=== PATIENT | male | born 1955 | race Caucasian/White ===

== ENCOUNTER 2018-01-23 21:07 | Inpatient (IN) | payer OTHER ==
[~2018-01-23] VITALS: Ht 182.9 cm; Wt 108.9 kg
[2018-01-23 21:11] VITALS: BP 131/77
[2018-01-23] MEDS ORDERED: AMITRIPTYLINE H75 M1 PO (21:18)
[2018-01-23] MEDS ORDERED: ADULT ASPIRIN81 MG PO (21:20)
[2018-01-23] MEDS ORDERED: NEURONTIN 300300 M1 PO (21:20)
[2018-01-23] MEDS ORDERED: PREDNISOLONE 5 M5 MG PO (21:20)
[2018-01-23 21:35] LABS: ABSOLUTE BASOPHILS 0.1 thou/uL (0.0-0.2); ABSOLUTE EOSINOPHILS 0.3 thou/uL (0.0-0.7); ABSOLUTE LYMPHOCYTES 1.7 thou/uL (0.8-5.3); ABSOLUTE MONOCYTES 0.8 thou/uL (0.0-1.2); ABSOLUTE NEUTROPHILS 5.5 thou/uL (1.6-8.1); EOSINOPHILS 3.1 %; HEMOGLOBIN 12.5 gm/dL (14.0-18.0); LYMPHOCYTES 20.5 %; MCH 32.2 pg (26.0-34.0); MCHC 33.7 g/dL (28.0-37.0); MCV 95.4 fL (80.0-100.0); MONOCYTES 9.1 %; MPV 7.7 fl. (7.2-11.1); NUCLEATED RBCS 0 /100WBC; PLATELET COUNT* 244 thou/uL (150-400); POLYS 66.3 %; RBC 3.88 mil/uL (4.50-6.00); RDW-CV 14.1 % (10.5-14.5); WBC 8.3 thou/uL (4.0-11.0)
[2018-01-23 21:40] LABS: ANION GAP 2 mmol/L (7-16); BUN 15 mg/dL (7-18); CALCIUM 8.8 mg/dL (8.5-10.1); CHLORIDE 97 mmol/L (98-107); CO2 39 mmol/L (21-32); CREATININE 1.1 mg/dL (0.6-1.3); GLUCOSE 105 mg/dL (70-99); POTASSIUM 3.6 mmol/L (3.5-5.1); SODIUM 138 mmol/L (136-145)
[2018-01-23 21:51] LABS: ALBUMIN 3.5 g/dL (3.4-5.0); ALKALINE PHOSPHATASE 140 U/L (46-116); NT-PRO BRAIN NAT PEPTIDE 33 pg/mL (<300); SGOT 22 U/L (15-37); SGPT 27 U/L (30-65); TOTAL BILIRUBIN 0.3 mg/dL (<0.1-1.0); TOTAL PROTEIN 7.1 g/dL (6.4-8.2); TROPONIN-I LEVEL <0.06 ng/mL (<0.06)
[2018-01-23 21:59] LABS: PROTIME 10.2 Seconds (9.20-11.50)
[2018-01-24] VITALS (8 sets, daily range): BP systolic 118–166; BP diastolic 65–80
[2018-01-24 05:04] LABS: URINE BILIRUBIN NEGATIVE (Negative); URINE BLOOD NEGATIVE (Negative); URINE CLARITY CLEAR; URINE COLOR YELLOW; URINE GLUCOSE-RANDOM NEGATIVE (Negative); URINE KETONES NEGATIVE (Negative); URINE LEUKOCYTES-REFLEX NEGATIVE (Negative); URINE NITRITE-REFLEX NEGATIVE (Negative); URINE PROTEIN NEGATIVE (Negative); URINE SPECIFIC GRAVITY <= 1.005 (1.005-1.030); URINE UROBILINOGEN 0.2 E.U./dl (0.2-1.0)
[2018-01-24 05:32] LABS: HEMATOCRIT 36.4 % (42.0-52.0); MCH 31.7 pg (26.0-34.0); MCHC 32.9 g/dL (28.0-37.0); MCV 96.4 fL (80.0-100.0); MPV 7.9 fl. (7.2-11.1); RBC 3.77 mil/uL (4.50-6.00); RDW-CV 14.6 % (10.5-14.5)
[2018-01-24 06:06] LABS: ALBUMIN 3.4 g/dL (3.4-5.0); CALCIUM 8.6 mg/dL (8.5-10.1); CREATININE 1.1 mg/dL (0.6-1.3); POTASSIUM 4.1 mmol/L (3.5-5.1); TOTAL BILIRUBIN 0.2 mg/dL (<0.1-1.0); TOTAL PROTEIN 6.4 g/dL (6.4-8.2)
--- NOTE | 2018-01-24 11:56 | EKG ---
[place] [address] ELECTROCARDIOGRAM REPORT Name: JAMARSTAR Room: [address] ADM IN M.R.#: [id number] Admission: 01/23/18 Attend Phys: Jonathan Costello MD Discharge: Date of : 53 Report #: [id number] THIS REPORT FOR: //name// 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
--- NOTE | 2018-01-24 11:56 | EKG ---
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
[2018-01-24] MEDS ORDERED: FLOMAX0.4 MG PO (12:54)
[2018-01-24] MEDS ORDERED: BACTRIM DS TAB1 EACH PO (12:55)
[2018-01-24] MEDS ORDERED: HYDROCHLOROTHIA25 M2 PO (12:56)
[2018-01-24] MEDS ORDERED: SYMBICORT160 MCG/4. INH (13:00)
[2018-01-24 15:32] LABS: ANION GAP < 0 mmol/L (7-16); BUN 18 mg/dL (7-18); CALCIUM 8.9 mg/dL (8.5-10.1); CHLORIDE 98 mmol/L (98-107); CHOLESTEROL 202 mg/dL (<200); CO2 39 mmol/L (21-32); CREATININE 1.1 mg/dL (0.6-1.3); GLUCOSE 121 mg/dL (70-99); HDL CHOLESTEROL 51 mg/dL (>40); LDL CHOLESTEROL 126 mg/dL (<100); POTASSIUM 4.2 mmol/L (3.5-5.1); SODIUM 136 mmol/L (136-145); TRIGLYCERIDE 127 mg/dL (<150); VLDL 25 mg/dL (<40)
[2018-01-24 15:33] LABS: SERUM ASSESSMENT Clear
[2018-01-24] MEDS ORDERED: MOBIC7.5 MG PO (22:18)
[2018-01-24] MEDS ORDERED: CYMBALTA30 MG PO (22:21)
[2018-01-24] MEDS ORDERED: VIAGRA100 MG PO (22:22)
[2018-01-24] MEDS ORDERED: SPIRIVA PO (22:23)
[2018-01-24] MEDS ORDERED: VENTOLIN HFA INH8 GM INH (22:25)
[2018-01-24] MEDS ORDERED: CYCLOBENZAPRINE5 MG PO (22:25)
[2018-01-24] MEDS ORDERED: NORVASC5 M1 PO (22:26)
[2018-01-24] MEDS ORDERED: DALIRESP250 MCG PO (22:26)
[2018-01-24] MEDS ORDERED: ACCUNEB SO1.25 MG/1 INH (22:29)
[2018-01-24] MEDS ORDERED: ZYRTEC10 M5 PO (22:30)
[2018-01-24] MEDS ORDERED: LIDOCAINE-PRILO30 GM TOP (22:30)
[2018-01-24] MEDS ORDERED: NITROGLYCERIN0.4 MG SUBLING (22:31)
[2018-01-24] MEDS ORDERED: IPRAT-ALBUT 0.5-3 ML INH (22:32)
[2018-01-24] MEDS ORDERED: IPRATROPIU0.2 MG/1 M INH (22:54)
[2018-01-25] VITALS: BP 120/60
[2018-01-25 04:00] VITALS: BP 131/69
[2018-01-25 08:45] VITALS: BP 123/63
--- NOTE | 2018-01-25 11:37 | EKG ---
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: : 1955 Requested By: Jonathan Costello Order Number: [id number] Reading MD: Rip Tam Measurements Intervals [place] Rate: 81 P: 69 [place]: 186 QRS: 47 QRSD: 108 T: 68 QT: 475 QTc: 552 Interpretive Statements Sinus rhythm Probable left atrial enlargement Borderline T wave abnormalities Prolonged QT interval Baseline wander in lead(s) III,V2,V3,V4,V5 Compared to ECG 01/24/2018 10:23:41 T-wave abnormality now present Prolonged QT interval now present Electronically Signed On 01-25-2018 11:37:22 CDT by Rip Tam [email or web address] <ELECTRONICALLY SIGNED> By: Rip Tam MD, FACC 01/25/18 1137 1854 1854 Rip Tma MD, FACC /EPI
[2018-01-25 12:00] VITALS: BP 116/62
[2018-01-25 15:52] VITALS: BP 141/64
[2018-01-25 20:00] VITALS: BP 142/67
[2018-01-26] VITALS (12 sets, daily range): BP systolic 119–163; BP diastolic 63–92
[2018-01-26] MEDS ORDERED: DOXYCYCLINE 10100 MG PO (13:12)
[2018-01-26] MEDS ORDERED: PREDNISONE 20 M20 MG PO (13:12)
--- NOTE | 2018-01-26 14:24 | CARD ---
[address] [address] CARDIAC CATH REPORT Name: STAR ROLDAN Room: [address] IN .R.#: [id number] Admission: 01/23/18 Attend Phys: Jonathan Costello MD Discharge: Date of : 53 Report #: [id number] THIS REPORT FOR: //name// APPROVED REPORT Study performed: 01/26/2018 09:23:21 Patient Details Patient Status: In-Patient Room #: 210 The patient is a year-old male Event Personnel Shad Zhuo Fire Claims Adjuster, Adriana Alfonso RN Senior Product Marketing Manager, Nayana Jensen RTR Monitor, Reece Verdin (R) Scrub Procedures Performed Art Access - R radial artery Left Heart Cath w/or w/o Coronaries [facility] Hemostasis with Hemoband Indication Syncope, Chest pain Risk Factors Arterial Hypertension, Chronic Lung Disease Admission/Lab Medications/Medications given during procedure Heparin Unfract. Procedure Narrative The patient was brought electively to the Cardiac Catheterization Laboratory and was prepped and draped in a sterile manner. The right wrist was infiltrated with 2% Lidocaine subcutaneous anesthesia. A Slender Glidesheath sheath was inserted into the right radial artery. Coronary angiography was performed using coronary diagnostic catheters. The right coronary system was accessed and visualized with a Diagnostic 6Fr JR4 catheter. The left coronary system was accessed and visualized with a Diagnostic 6Fr JL4 catheter. The left ventricle was accessed and visualized with a Diagnostic 6Fr Straight pigtail catheter. Left ventricular/Aortic Valve gradient assessed via catheter pullback. Left ventriculogram was performed in SNYDER projection. An aortogram of the SNYDER was performed. Closure device was deployed with a 6 Fr Vasc-Band Lng 27cm. The patient tolerated the procedure well and there were no complications associated with the procedure. [place] [address] CARDIAC CATH REPORT Name: STAR ROLDAN Room: [address] IN [facility]#: [id number] Admission: 01/23/18 Attend Phys: Jonathan Costello MD Discharge: Date of : 53 Report #: [id number] Intraoperative Conscious Sedation Sedation start time: 8:46 Case end Time: 9:30 Versed 2 mg Fluoro Time: 1.9 minutes Dose: DAP 3913.77 cGycm2 217 mGy Contrast Type and Amount: Visipaque 90 ml Coronary Angiography The patient's coronary anatomy is left dominant. Torres Martinez Artery Percent Stenosis Left Main: 0 % Prox LAD: 0 % Mid/Distal LAD: 30 % Circumflex: 30 % RCA: 0 % Ramus: % Left Ventriculography The left ventricle is normal in size with normal contractility. The left ventricular ejection fraction is estimated to be 60-65%. Left ventricular wall motion abnormalities are not present. There is no mitral insufficiency. Hemodynamics The aortic pressure is 90/53 mmHg with a mean of 71 mmHg. The left ventricular pressure is 97/12 mmHg with a mean of mmHg. The left ventricular end diastolic pressure is 16 mmHg. Pullback from the left ventricle to the aorta revealed a mm gradient across the aortic valve. Conclusion 1. minimal CAD 2. normal LV function Recommendations Aggressive Medical Therapy <ELECTRONICALLY SIGNED> By: Shad Zhou MD, FACC 01/26/18 1424 1424 1424Driver Zhou MD, FACC /INF
--- NOTE | 2018-02-16 09:11 | CON ---
[address] [address] CONSULTATION Name: JAMARSTAR Gala Room: [address]#: [id number] Admission: 01/23/18 Attend Phys: Jonathan Costello MD Discharge: 01/26/18 Date of : 53 Report #: [id number] THIS REPORT FOR: //name// CC: Jonathan Costello [facility] physician/PCP REQUESTING PHYSICIAN: Jonathan Costello MD CHIEF COMPLAINT: Chest pain and shortness of breath. HISTORY OF PRESENT ILLNESS: The patient is a 62-year-old man who presented with shortness of breath and chest discomfort. He presented with some cardiovascular risk factors, who was admitted for further evaluation. Subsequent to this, a stress test was performed, which was nondiagnostic because of the patient's lung disease. The patient had numerous cardiovascular risk factors. His chest pain is described as sharp, nonradiating. It is associated with chronic shortness of breath, which was noted on presentation. He denied palpitations. He presents with a sinus rhythm. His ECG demonstrated a pulmonary disease pattern and poor R-wave progression. Cardiac troponin levels were unremarkable. PAST MEDICAL HISTORY: COPD. SOCIAL HISTORY: Tobacco use. FAMILY HISTORY: Noncontributory. CARDIAC MEDICATIONS: Amitriptyline, aspirin, gabapentin, prednisolone. REVIEW OF SYSTEMS: GASTROINTESTINAL: No nausea or vomiting. GENITOURINARY: No dysuria or hematuria. PULMONARY: Positive shortness of breath. CARDIOVASCULAR: Positive chest pain. SKIN: No rashes. NEUROLOGIC: Denies syncope or seizures. HEMATOLOGIC: No anemia. PHYSICAL EXAMINATION: VITAL SIGNS: Blood pressure is 141/72, pulse of 69, in sinus rhythm. GENERAL: This is a pleasant elderly male who is alert, in no apparent distress. NECK: Supple. No jugular venous distention. CARDIOVASCULAR: Regular. There is no murmur. LUNGS: Clear to auscultation. ABDOMEN: Soft, [place] [address] CONSULTATION Name: STAR ROLDAN Gala Room: [address]#: [id number] Admission: 01/23/18 Attend Phys: Jonathan Costello MD Discharge: 01/26/18 Date of : 53 Report #: [id number] EXTREMITIES: No peripheral edema. LABORATORY DATA: ECG showed a sinus rhythm, poor R-wave progression, nonspecific ST segment abnormality. IMPRESSION: 1. Chest pain. Symptoms are concerning because of his risk factors. 2. Equivocal stress test. 3. Shortness of breath. 4. Chronic obstructive pulmonary disease. PLAN: We have arranged for further evaluation with a diagnostic cardiac catheterization given the patient's inability to complete a stress test. He has cardiovascular risk factors including age, tobacco use, prior unknown lipid status. <ELECTRONICALLY SIGNED> By: Martinez Diego MD, FACC 02/16/18 0911 1643 [id number] Tam MD, FACC /nt
== END 2018-01-26 17:30 | disposition home or self-care (01) | DRG 286 ==
LOC: EDBD 21:07 → M.ERS 21:07 → M.2W 23:27 → M.TBA-ER 23:27 → M.2W 01-24 00:25
PROVIDERS: Emergency Medicine; Internal Medicine Cardiovascular Disease; ADMIT Internal Medicine
PROC: 4A023N7 Measurement of Cardiac Sampling and Pressure, Left Heart, Percutaneous Approach (ICD-10-PCS; principal; 2018-01-26)
PROC: B2151ZZ Fluoroscopy of Left Heart using Low Osmolar Contrast (ICD-10-PCS; principal; 2018-01-26)
PROC: B2111ZZ Fluoroscopy of Multiple Coronary Arteries using Low Osmolar Contrast (ICD-10-PCS; principal; 2018-01-26)
DX: I20.0 Unstable angina (principal); J96.21 Acute and chronic respiratory failure with hypoxia; J44.1 Chronic obstructive pulmonary disease with (acute) exacerbation; N39.0 Urinary tract infection, site not specified; F32.9 Major depressive disorder, single episode, unspecified; R33.9 Retention of urine, unspecified; I10 Essential (primary) hypertension; Z85.46 Personal history of malignant neoplasm of prostate; I25.2 Old myocardial infarction; Z92.3 Personal history of irradiation; Z92.21 Personal history of antineoplastic chemotherapy; Z79.82 Long term (current) use of aspirin; Z79.899 Other long term (current) drug therapy; Z91.048 Other nonmedicinal substance allergy status; Z87.440 Personal history of urinary (tract) infections; Z82.49 Family history of ischemic heart disease and other diseases of the circulatory system